=== PATIENT | female | born 1985 | race African-American/Black ===

== ENCOUNTER 2017-10-08 17:50 | Emergency (ER) | payer OTHER ==
[~2017-10-08] VITALS: Ht 165.1 cm; Wt 67.6 kg
[2017-10-08] MEDS ORDERED: NORFLEX100 MG PO (18:55)
[2017-10-08] MEDS ORDERED: TRAMADOL 50 MG50 MG PO (18:55)
== END 2017-10-08 19:16 | disposition home or self-care (01) ==
LOC: ER 17:50
DX: M62.830 Muscle spasm of back (principal)